=== PATIENT | male | born 1980 | race Caucasian/White ===

== ENCOUNTER → 2021-12-06 | Outpatient (CLI) | payer OTHER | LOC: COL.RAD 08:18 | DX: R10.11 Right upper quadrant pain (principal); R11.0 Nausea ==

== ENCOUNTER → 2021-12-15 | Outpatient (CLI) | payer OTHER | LOC: COL.RAD 09:15 | DX: R11.2 Nausea with vomiting, unspecified (principal); R10.9 Unspecified abdominal pain | CPT/HCPCS: A9537 ==